=== PATIENT | male | born 1975 | race Hispanic/Latino ===

== ENCOUNTER 2022-06-17 22:36 | Emergency (ER) | payer SELFPAY ==
[2022-06-17] MEDS ORDERED: Ketorolac Tromethamine 30 MG/ML VIAL ONE (23:05)
== END 2022-06-17 23:31 | disposition home or self-care (01) ==
LOC: ERS 22:36
DX: K08.89 Other specified disorders of teeth and supporting structures (principal)
CPT/HCPCS: 96372; 99282; J1885